=== PATIENT | male | born 1985 | race African-American/Black ===

== ENCOUNTER 2018-03-27 20:29 | Emergency (ER) | payer OTHER ==
[~2018-03-27] VITALS: Ht 172.7 cm; Wt 72.0 kg
[2018-03-27 20:48] VITALS: BP 118/71; PULSE 68; RESP 18; TEMP 97.8; O2SAT 100
[2018-03-27] MEDS ORDERED: CYCLOBENZAPRINE HCL 10 MG TAB PO ONE (22:00)
[2018-03-27] MEDS ORDERED: IBUPROFEN 800 MG TAB PO ONE (22:00)
[2018-03-27] MEDS ORDERED: IBUP1TAB7 PO (22:04)
[2018-03-27] MEDS ORDERED: CYCL10TA PO (22:04)
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
== END 2018-03-27 22:57 | disposition home or self-care (01) ==
LOC: NEPD 20:29
DX: M54.6 Pain in thoracic spine (principal)
CPT/HCPCS: 99283